=== PATIENT | male | born 1985 | race Caucasian/White ===

== ENCOUNTER 2016-12-19 14:15 | Emergency (ER) | payer SELFPAY ==
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
[2016-12-19] MEDS ORDERED: Ibuprofen TAB* 800 MG PO ONE (16:10)
[2016-12-19 16:31] VITALS: BP 120/76
== END 2016-12-19 16:30 | disposition home or self-care (01) ==
LOC: ED 14:15
DX: S06.0X9A Concussion with loss of consciousness of unspecified duration, initial encounter (principal); S16.1XXA Strain of muscle, fascia and tendon at neck level, initial encounter; T14.8 Other injury of unspecified body region; V49.9XXA Car occupant (driver) (passenger) injured in unspecified traffic accident, initial encounter; Y93.89 Activity, other specified; Y92.9 Unspecified place or not applicable; F17.210 Nicotine dependence, cigarettes, uncomplicated
CPT/HCPCS: 70450; 72125; 99282; A9270-GY